=== PATIENT | male | born 1965 | race Caucasian/White ===

== ENCOUNTER 2016-12-24 08:05 | Day surgery (SDC) | payer MEDICARE, MEDICAID ==
[~2016-12-24 08:05] MED LIST: Lactated Ringers 1,000 ML IV SCH; Sodium Chloride 0.9% 10 ML Syringe FLUSH PRN; Sodium Chloride 0.9% 2.5 ML Syringe FLUSH PRN; ceFAZolin 2 GM in Premix Bag 1 BAG IV ONE
--- NOTE | 2016-12-24 08:35 | PCM.PREANE ---
Preanesthetic Assessment - Anesthesia/Transfusion/Family Hx Anesthesia History: Prior Anesthesia Without Reaction Family History of Anesthesia Reaction: No Transfusion History: No Prior Transfusion(s) Intubation History: Unknown - Review of Systems General: No Symptoms Pulmonary: No Symptoms Cardiovascular: No Symptoms Gastrointestinal: No Symptoms Neurological: No Symptoms Other: Reports: None - Physical Assessment Height: 1.65 m Weight: 58.06 kg ASA Class: 3 Mental Status: Alert & Oriented x3 Airway Class: Mallampati = 2 Dentition: Reports: Normal Dentition Thyro-Mental Finger Breadths: 3 Mouth Opening Finger Breadths: 2 ROM/Head Extension: Limited/Partial Lungs: Clear to Auscultation, Normal Respiratory Effort Cardiovascular: Regular Rate, Regular Rhythm, Other (valve click) - Allergies Allergies/Adverse Reactions: Allergies Allergy/AdvReac Type Severity Reaction Status Date / Time No Known Allergies Allergy Verified 04/25/16 13:18 - Blood Blood Available: No - Anesthesia Plan Pre-Op Medication Ordered: None - Acknowledgements Anesthesia Type Planned: General Anesthesia Pt an Appropriate Candidate for the Planned Anesthesia: Yes Alternatives and Risks of Anesthesia Discussed w Pt/Guardian: Yes Pt/Guardian Understands and Agrees with Anesthesia Plan: Yes PreAnesthesia Questionnaire - Past Health History Medical/Surgical History: Denies Medical/Surgical History HEENT History: Reports: None Cardiovascular History: Reports: Heart Valve Replacement (MVR (mechanical valve ) plus tricuspid valve repair at the same timer > 20 years ago), High Cholesterol, Hypertension, Other (See Below) (h/o CHF , cardiac ECHO 03/18 shows EF 52 %) Other Cardiovascular History: hx congenital septal defect Respiratory History: Reports: Sleep Apnea Other Respiratory History: sleep apnea, (septoplasty and adenoidectomy for this) Musculoskeletal History: Reports: Other (See Below) (chronic pain and cyanosis of toes bilateraly) Neurological History: Reports: Other (See Below) Other Neuro History: Down's syndrome, moderate Psychiatric History: Reports: Other (See Below) Other Psychiatric History: down syndrome Endocrine/Metabolic History: Reports: None Dermatologic History: Reports: Other (See Below) Other Dermatologic History: rash to face - Past Surgical History HEENT Surgical History: Reports: Adenoidectomy, Myringotomy w Tube(s), Naso- Sinus Surgery Other HEENT Surgeries/Procedures: septoplasty with laser turbinectomy, Cardiovascular Surgical History: Reports: Other (See Below) Other Cardiovascular Surgeries/Procedures: cardiac surgery 1982 for atrial septal defect, UV plasty mechanical valve -L side, repair mitral valve (MVR ?) - SUBSTANCE USE Smoking Status *Q: Never Smoker Recreational Drug Use History: No - HOME MEDS Home Medications: Home Meds Potassium Chloride 1 tab PO DAILY 04/25/16 [History] Warfarin [Coumadin] 1 tab PO ASDIRECTED 04/25/16 [History] Warfarin [Coumadin] 1 tab PO ASDIRECTED 04/25/16 [History] atorvaSTATin [Lipitor] 1 tab PO BEDTIME 04/25/16 [History] Aspirin [Winston Aspirin] 81 mg PO DAILY 12/22/16 [History] Betamethasone Valerate [IJD: Valisone 0.1% Crm] 1 applic TOP ASDIRECTED [History] Diltiazem [Cardizem CD] 180 mg PO DAILY 12/22/16 [History] traZODone HCl [Trazodone HCl] 50 mg PO BEDTIME 12/22/16 [History] - CURRENT (IN HOUSE) MEDS Current Meds: Current Medications Lactated Ringer's (Ringers, Lactated) 1,000 mls @ 125 mls/hr IV ASDIRECTED CRYSTAL Sodium Chloride (Saline Flush) 10 ml FLUSH ASDIRECTED PRN PRN Reason: Keep Vein Open Sodium Chloride (Saline Flush) 2.5 ml FLUSH ASDIRECTED PRN PRN Reason: Keep Vein Open Discontinued Medications Cefazolin Sodium/Dextrose 2 gm (/ Premix) 50 mls @ 100 mls/hr IV ONETIME ONE Stop: 12/21/16 09:49
[2016-12-24] MEDS ORDERED: Ondansetron 4 MG/2 ML SDV ONE (09:00)
[2016-12-24] MEDS ORDERED: Propofol 200 MG/20 ML SDV ONE (09:01)
[2016-12-24] MEDS ORDERED: Midazolam 1 MG/ML 2 ML SDV ONE (09:01)
[2016-12-24] MEDS ORDERED: fentaNYL 100 MCG/2 ML SDV ONE (09:01)
[2016-12-24] MEDS ORDERED: Bupivacaine 0.5% 10 ML SDV ONE (09:39)
[2016-12-24] MEDS ORDERED: ePHEDrine 50 MG/ML SDV ONE (10:24)
--- NOTE | 2016-12-24 11:09 | PCM.OPNOTE ---
- General Post-Op/Procedure Note Date of Surgery/Procedure: 12/24/16 Operative Procedure(s): excision upper back mass Findings: 5-6 cm back cyst Pre Op Diagnosis: Upper back mass Post-Op Diagnosis: upper back cyst Anesthesia Technique: General LMA Primary Surgeon: Renuka Phillips Condition: Good
[2016-12-24 11:16] VITALS: BP 86/45
--- NOTE | 2016-12-24 11:21 | PCM.POSTAN ---
POST ANESTHESIA ASSESSMENT - MENTAL STATUS Mental Status: Confused (as before surgery) - RESPIRATORY Respiratory Status: Respiratory Rate WNL, Airway Patent, O2 Saturation Stable - CARDIOVASCULAR CV Status: Pulse Rate WNL, Blood Pressure Stable - GASTROINTESTINAL GI Status: No Symptoms - PAIN Pain Score: 0 - POST OP HYDRATION Hydration Status: Adequate & Stable - OBSERVATIONS Free Text/Narrative:: no anesthesia problems
--- NOTE | 2016-12-24 18:29 | OR ---
SURGEON: MANSI OLIVEIRA MD DATE OF PROCEDURE: 12/24/2016 PREOPERATIVE DIAGNOSIS: Upper back mass. POSTOPERATIVE DIAGNOSIS: Upper back mass. PROCEDURE PERFORMED: Excision of upper back mass. ANESTHESIA: General LMA. FLUIDS: See Anesthesia record. ESTIMATED BLOOD LOSS: 10 mL. FINDINGS: 5-6 cm cystic mass excised from the upper back. COMPLICATIONS: None. INDICATIONS: The patient is a 51-year-old male from the [facility], who presents with an enlarging mass on his back. Providers have noted that this is growing in size. A CT of the back showed a possible sebaceous cyst or large lipoma. The decision was made to excise this in the operating room. I discussed the procedure, expected perioperative course, and risks with his caregivers. They verbally agreed and consent was obtained. PROCEDURE IN DETAIL: The patient was brought into the OR and placed on the operating room table in a right lateral decubitus position. A time-out was completed verifying the patient's name, age, date of , allergies, and procedure to be performed. Prior to positioning the patient, general anesthetic was induced and an LMA was placed. The back was prepped and draped in the usual standard fashion. An elliptical incision was made over the apex of the mass using a #15 blade. I anesthetized the area around the mass with 0.5% Marcaine plain. Cautery was used to dissect down to the level of the subcutaneous tissue. I immediately encountered what appeared to be a cyst wall. Using a Metzenbaum scissors in combination with cautery, I dissected around this mass and freed it from the surrounding tissues. It abutted the fascia of the upper back. The cyst was completely excised and sent to Pathology labeled as upper back mass. Cautery was used to obtain hemostasis. Interrupted 3-0 Vicryl were used to tack the skin flaps down to the muscle fascia to prevent seroma formation. A running 3-0 Vicryl stitch was used to bring the subcutaneous skin together. The skin was then closed with a running 4-0 Monocryl suture. Steri-Strips and sterile dressings were applied. The patient tolerated the procedure well and was taken to the PACU in stable condition. BEVERLY NORRIS /[id number] KAYLA
== END 2016-12-24 11:50 | disposition home or self-care (01) ==
LOC: MW.SDS 08:05
PROVIDERS: ATTEND Surgery
DX: L72.0 Epidermal cyst (principal); Q90.9 Down syndrome, unspecified; I11.0 Hypertensive heart disease with heart failure; I50.9 Heart failure, unspecified; G47.30 Sleep apnea, unspecified; E11.9 Type 2 diabetes mellitus without complications; E78.00 Pure hypercholesterolemia, unspecified; Z79.01 Long term (current) use of anticoagulants; Z79.82 Long term (current) use of aspirin; Z79.899 Other long term (current) drug therapy; Z95.2 Presence of prosthetic heart valve; Z90.89 Acquired absence of other organs; Z98.890 Other specified postprocedural states
CPT/HCPCS: 11406; 88304; J2250; J2405; J3010; J7120; 00300; J2704

== ENCOUNTER 2018-06-11 04:52 | Observation (INO) | payer MEDICARE, MEDICAID ==
[2018-06-11] MEDS ORDERED: LORazepam 2 MG/ML SDV IVPUSH ONE ×2 (05:01→05:26)
[2018-06-11] MEDS ORDERED: Sodium Chloride 0.9% 10 ML Syringe FLUSH PRN (05:01)
[2018-06-11] MEDS ORDERED: Sodium Chloride 0.9% 2.5 ML Syringe FLUSH PRN (05:01)
--- NOTE | 2018-06-11 05:06 | EDM.PDOC ---
ED HPI GENERAL MEDICAL PROBLEM - General Stated Complaint: SEIZURE Time Seen by Provider: 06/11/18 04:55 - History of Present Illness INITIAL COMMENTS - FREE TEXT/NARRATIVE: HISTORY AND PHYSICAL: History of present illness: The patient is a 53-year-old male with a history of mitral valve replacement with a mechanical valve and long-term anticoagulation, tricuspid valve repair will compensated CHF Down syndrome and a severe intellectual disability and lives at one of our local group homes and presents via EMS after having an episode of abnormal motor behavior/seizure activity. According to a sketchy history that was given to the paramedics by the surgical services tech the patient was in a chair and had no preceding systemic complaints when this abnormal motor activity was witnessed. He did not have loss of bowel or bladder and on EMS arrival they did not witness any seizure activity but he seemed to be post ictal and somewhat posturing which by the time he arrived here had improved and he is more at his baseline. The patient has a history of hypercholesterolemia as well as the surgical valve repair and is not able to offer any history here as he is nonverbal. None of the caretakers from the detention have come with the patient to give us more information. We will attempt to contact them or await their arrival for more information. The patient did not sustain any trauma with these events according to EMS and was in the chair when they arrived and they were told he had been in the chair when this occurred. We do not know about any preceding symptoms or events. According to the computer research I've done he has no history of seizures or other episodes like this. Please see below for additional information from the [facility] retention representative Review of systems: As per history of present illness and below otherwise all systems reviewed and negative. Past medical history: As per history of present illness and as reviewed below otherwise noncontributory. Surgical history: As per history of present illness and as reviewed below otherwise noncontributory. Social history: No reported history of drug or alcohol abuse. Family history: As per history of present illness and as reviewed below otherwise noncontributory. Physical exam: General: Well-developed well-nourished thin man who is nontoxic and moving all extremities and is nonverbal. He is sitting in the bed with his tongue slightly protuberant and will allow us to do basic things to him but tries to remove the pulse ox and picks at things and rearranges the blanket numerous times. On his clothing there is no evidence of any bowel or bladder disturbances and his tongue has no lacerations or contusions. HEENT: Atraumatic, normocephalic, pupils reactive, negative for conjunctival pallor or scleral icterus, mucous membranes dry, throat clear, neck supple, nontender, trachea midline. Lungs: Clear to auscultation diminished breath sounds throughout with poor effort but no wheezing stridor or worker breathing is seen, there is a midline chest wall scar which is well-healed consistent with his valvular replacement, breath sounds equal bilaterally, chest nontender. Heart: S1S2, regular, negative for clicks, rubs, or JVD. There is a systolic click consistent with a mechanical valve that is appreciated but is somewhat distant on my evaluation. Abdomen: Soft, nondistended, nontender. Negative for masses or hepatosplenomegaly. Negative for costovertebral tenderness. Pelvis: Stable nontender. Genitourinary: Deferred. Rectal: Deferred. Extremities: Atraumatic with full range of motion without defects deficits or soft tissue changes, negative for cords or calf pain. Neurovascular unremarkable. Neuro: Awake, nonverbal and responsive to pain and voice but does not follow commands and picks at different items in the bed and the blanket. There is no one from home here currently to identify his baseline mental status. Motor and sensory unremarkable throughout. Exam nonfocal. Diagnostics: EKG CBC CMP INR TSH troponin prolactin UA with reflex CT of the head chest x-ray Therapeutics: IV O2 monitor gentle IV fluids, Ativan to permit testing to be performed A member from the detention has arrived, and knows Dimitry very well. He does reiterate the history that I ordered he have dictated above and that he has no history of seizures. This retention representative was not present or tonight's events but does tell me that Dimitry has been progressively exhibiting signs of dementia over the last several months with more restlessness less sleeping, more sundowning becoming progressively more nonverbal and exhibiting primitive behaviors like crawling instead of walking to room. He says that this is better very progressive thing and is not sudden in onset. He was not present for tonight's events and is unsure of what was witnessed but we did discuss that evening and these motor abnormalities may have been a seizure or it may have been a syncopal event or the patient may have been in sleep when this occurred it is all unclear at this point. We will proceed to do a workup including CT scan of the head as the patient is on Coumadin therapy. We will obtain these testing results and reevaluate for disposition plan. The detention retention representative is aware that we will likely need to give the patient some Ativan in order to get testing done and he is agreeable. He is also trying to comments to the patient during our evaluation 0620: I discussed all testing results with caregiver at bedside and he will notify the power of consumer attorney for medical treatment, the patient's guardian, about tonight's events. I discussed options for disposition with either follow- up in the neurology clinic or admission to the hospital. The caregiver feels uncomfortable in light of tonight's events and potential of more seizure activity without evaluation as the patient has other behavioral issues ongoing. I discussed this case with Dr. Pink who is agreed for observation admission and would like a consult to Dr. Kirkland. At this point we discussed whether or not the patient should be.started on anticonvulsant therapy as getting an outpatient EEG and/or any further history from this patient and of tonight's events is unlikely. Dr. Pink can have a dialogue with her as she is not available until 8 AM and he is aware of that. I put in a formal consult to her but she will need to be notified by the floor or Dr. Pink at 8 am of this patient. Caregiver is comfortable with this. The patient needed a total of 2 doses of 0.5 mg of Ativan to get our testing performed and he is currently sleeping comfortably in the ED. He is responding to IV fluids and his stable for transfer to the floor. Impression: episode of abnormal motor behavior seizure versus syncopal event , history of Down's syndrome and severe mental disability with signs of progressing dementia per history Definitive disposition and diagnosis as appropriate pending reevaluation and review of above. - Related Data Allergies Allergy/AdvReac Type Severity Reaction Status Date / Time No Known Allergies Allergy Verified 06/11/18 05:11 Home Meds: Home Meds Potassium Chloride 1 tab PO DAILY 04/25/16 [History] Warfarin [Coumadin] 1 tab PO ASDIRECTED 04/25/16 [History] Warfarin [Coumadin] 1 tab PO ASDIRECTED 04/25/16 [History] atorvaSTATin [Lipitor] 1 tab PO BEDTIME 04/25/16 [History] Aspirin [Carroll Aspirin EC] 81 mg PO DAILY 12/22/16 [History] Betamethasone Valerate [IJD: Valisone 0.1% Crm] 1 applic TOP ASDIRECTED [History] Diltiazem [Cardizem CD] 180 mg PO DAILY 12/22/16 [History] traZODone HCl [Trazodone HCl] 50 mg PO BEDTIME 12/22/16 [History] Past Medical History - Past Health History Medical/Surgical History: Denies Medical/Surgical History HEENT History: Reports: None Other HEENT History: Myopia Cardiovascular History: Reports: Heart Valve Replacement (MVR (mechanical valve ) plus tricuspid valve repair at the same timer > 20 years ago), High Cholesterol, Hypertension, Other (See Below) (h/o CHF , cardiac ECHO 03/18 shows EF 52 %) Other Cardiovascular History: hx congenital septal defect Respiratory History: Reports: Sleep Apnea Other Respiratory History: sleep apnea, (septoplasty and adenoidectomy for this) Musculoskeletal History: Reports: Other (See Below) (chronic pain and cyanosis of toes bilateraly) Neurological History: Reports: Seizure Other Neuro History: Down's syndrome, moderate Psychiatric History: Reports: Other (See Below) Other Psychiatric History: down syndrome Endocrine/Metabolic History: Reports: Diabetes, Type II Dermatologic History: Reports: Other (See Below) Other Dermatologic History: rash to face - Past Surgical History HEENT Surgical History: Reports: Adenoidectomy Social & Family History - Family History Family Medical History: Noncontributory - Caffeine Use Caffeine Use: Reports: None Caffeine Use Comment: 1cup/day ED ROS GENERAL - Review of Systems Review Of Systems: ROS reveals no pertinent complaints other than HPI. ED EXAM, GENERAL - Physical Exam Exam: See Below (See dictation) Course - Vital Signs Last Recorded V/S: Last Vital Signs Temp 36.2 C 06/11/18 04:52 Pulse 70 06/11/18 06:03 Resp 18 06/11/18 06:03 BP 79/44 L 06/11/18 06:03 Pulse Ox 87 L 06/11/18 06:03 - Orders/Labs/Meds Orders: Active Orders 24 hr Category Date Time Status Patient Status [ADT] Stat ADT 06/11/18 06:20 Ordered Cardiac Monitoring [RC] . DIRECTED Care 06/11/18 05:00 Active EKG Documentation Completion [RC] STAT Care 06/11/18 05:00 Active Notify Provider Consults [RC] ASDIRECTED Care 06/11/18 06:22 Ordered Oxygen Therapy, ED [RC] ASDIRECTED Care 06/11/18 05:00 Active Pulse Oximetry [RC] ASDIRECTED Care 06/11/18 05:00 Active Consult to Physician [CONS] Stat Cons 06/11/18 06:22 Ordered UA RFX RAFFI AND CULT IF INDIC [URIN] Stat Lab 06/11/18 05:00 Ordered Sodium Chloride 0.9% [Normal Saline] 500 ml Med 06/11/18 06:00 Active IV .BOLUS Sodium Chloride 0.9% [Normal Saline] 500 ml Med 06/11/18 05:15 Active IV STAT Sodium Chloride 0.9% [Saline Flush] Med 06/11/18 05:01 Active 10 ml FLUSH ASDIRECTED PRN Sodium Chloride 0.9% [Saline Flush] Med 06/11/18 05:01 Active 2.5 ml FLUSH ASDIRECTED PRN Saline Lock Insert [OM.PC] Stat Oth 06/11/18 05:00 Ordered Medication Orders Sodium Chloride (Normal Saline) 500 mls @ 999 mls/hr IV STAT CRYSTAL Last Admin: 06/11/18 05:17 Dose: 999 mls/hr Sodium Chloride (Normal Saline) 500 mls @ 999 mls/hr IV .BOLUS CRYSTAL Last Admin: 06/11/18 05:51 Dose: 999 mls/hr Sodium Chloride (Saline Flush) 10 ml FLUSH ASDIRECTED PRN PRN Reason: Keep Vein Open Sodium Chloride (Saline Flush) 2.5 ml FLUSH ASDIRECTED PRN PRN Reason: Keep Vein Open Labs: Laboratory Tests 06/11/18 06/11/18 06/11/18 Range/Units 04:57 04:57 04:57 WBC 5.06 (4.0-11.0) K/uL RBC 4.36 L (4.50-5.90) M/uL Hgb 14.2 (13.0-17.0) g/dL Hct 42.9 (38.0-50.0) % MCV 98.4 H (80.0-98.0) fL MCH 32.6 H (27.0-32.0) pg MCHC 33.1 (31.0-37.0) g/dL RDW Std Deviation 53.9 (28.0-62.0) fl RDW Coeff of Allen 15 (11.0-15.0) % Plt Count 209 (150-400) K/uL MPV 10.00 (7.40-12.00) fL Neut % (Auto) 32.6 L (48.0-80.0) % Lymph % (Auto) 57.9 H (16.0-40.0) % [place]ford % (Auto) 8.3 (0.0-15.0) % Eos % (Auto) 0.4 (0.0-7.0) % Baso % (Auto) 0.8 (0.0-1.5) % Neut # (Auto) 1.7 (1.4-5.7) K/uL Lymph # (Auto) 2.9 H (0.6-2.4) K/uL Radford # (Auto) 0.4 (0.0-0.8) K/uL Eos # (Auto) 0.0 (0.0-0.7) K/uL Baso # (Auto) 0.0 (0.0-0.1) K/uL Nucleated RBC % 0.0 /100WBC Nucleated RBCs # 0 K/uL INR 2.15 Sodium 144 (136-148) mmol/L Potassium 4.0 (3.5-5.1) mmol/L Chloride 107 (98-107) mmol/L Carbon Dioxide 25.4 (21.0-32.0) mmol/L BUN 18 (7.0-18.0) mg/dL Creatinine 1.0 (0.8-1.3) mg/dL Est Cr Clr Drug Dosing TNP Estimated GFR (MDRD) > 60.0 ml/min Glucose 116 H (74-106) mg/dL Calcium 8.7 (8.5-10.1) mg/dL Total Bilirubin 0.5 (0.2-1.0) mg/dL AST 28 (15-37) IU/L ALT 27 (14-63) IU/L Alkaline Phosphatase 81 (46-116) U/L Troponin I < 0.050 (0.000-0.056) ng/mL Total Protein 7.4 (6.4-8.2) g/dL Albumin 3.6 (3.4-5.0) g/dL Globulin 3.8 (2.6-4.0) g/dL Albumin/Globulin Ratio 0.9 (0.9-1.6) TSH 3rd Generation 5.16 H (0.36-3.74) uIU/mL Prolactin 121.6 ng/mL Meds: Medications Generic Name Dose Route Start Last Admin Trade Name Freq PRN Reason Stop Dose Admin Sodium Chloride 500 mls @ 999 mls/hr 06/11/18 05:15 06/11/18 05:17 Normal Saline IV 999 mls/hr STAT CRYSTAL Administration Sodium Chloride 500 mls @ 999 mls/hr 06/11/18 06:00 06/11/18 05:51 Normal Saline IV 999 mls/hr .BOLUS CRYSTAL Administration Sodium Chloride 10 ml 06/11/18 05:01 Saline Flush FLUSH ASDIRECTED PRN Keep Vein Open Sodium Chloride 2.5 ml 06/11/18 05:01 Saline Flush FLUSH ASDIRECTED PRN Keep Vein Open Discontinued Medications Generic Name Dose Route Start Last Admin Trade Name Freq PRN Reason Stop Dose Admin Lorazepam 0.5 mg 06/11/18 05:01 06/11/18 05:16 Ativan IVPUSH 06/11/18 05:02 0.5 mg ONETIME ONE Administration Lorazepam 0.5 mg 06/11/18 05:26 06/11/18 05:26 Ativan IVPUSH 06/11/18 05:27 0.5 mg ONETIME ONE Administration Departure - Departure Time of Disposition: 06:26 Disposition: Refer to Observation Condition: Good Clinical Impression: Episode of abnormal behavior - Discharge Information - My Orders Last 24 Hours: My Active Orders 06/11/18 05:00 Cardiac Monitoring [RC] . DIRECTED EKG Documentation Completion [RC] STAT Oxygen Therapy, ED [RC] ASDIRECTED Pulse Oximetry [RC] ASDIRECTED UA RFX RAFFI AND CULT IF INDIC [URIN] Stat Saline Lock Insert [OM.PC] Stat 06/11/18 05:01 Sodium Chloride 0.9% [Saline Flush] 10 ml FLUSH ASDIRECTED PRN Sodium Chloride 0.9% [Saline Flush] 2.5 ml FLUSH ASDIRECTED PRN 06/11/18 05:15 Sodium Chloride 0.9% [Normal Saline] 500 ml IV STAT 06/11/18 06:00 Sodium Chloride 0.9% [Normal Saline] 500 ml IV .BOLUS 06/11/18 06:20 Patient Status [ADT] Stat 06/11/18 06:22 Notify Provider Consults [RC] ASDIRECTED Consult to Physician [CONS] Stat - Assessment/Plan Last 24 Hours: My Active Orders 06/11/18 05:00 Cardiac Monitoring [RC] . DIRECTED EKG Documentation Completion [RC] STAT Oxygen Therapy, ED [RC] ASDIRECTED Pulse Oximetry [RC] ASDIRECTED UA RFX RAFFI AND CULT IF INDIC [URIN] Stat Saline Lock Insert [OM.PC] Stat 06/11/18 05:01 Sodium Chloride 0.9% [Saline Flush] 10 ml FLUSH ASDIRECTED PRN Sodium Chloride 0.9% [Saline Flush] 2.5 ml FLUSH ASDIRECTED PRN 06/11/18 05:15 Sodium Chloride 0.9% [Normal Saline] 500 ml IV STAT 06/11/18 06:00 Sodium Chloride 0.9% [Normal Saline] 500 ml IV .BOLUS 06/11/18 06:20 Patient Status [ADT] Stat 06/11/18 06:22 Notify Provider Consults [RC] ASDIRECTED Consult to Physician [CONS] Stat
[2018-06-11] MEDS ORDERED: Sodium Chloride 0.9% 500 ML IV SCH ×2 (05:15→06:00)
--- NOTE | 2018-06-11 05:58 | CR ---
Indication: Dyspnea Technique: Chest 1 view Comparison: 04/25/2016. Findings/Impression: Cardiovascular and mediastinum: Grossly stable cardiomediastinal silhouette. Sternotomy sutures and valvular prosthesis again seen Lungs and pleural space: The medial apices are obscured by the patient`s chin. Mild ill-defined right basilar opacity could represent atelectasis or evolving infiltrate. Correlate clinically and followup. No gross pleural effusions seen. Bones and soft tissues: No significant change. Dictated by Ben Mosquera MD @ 06/11/2018 5:57:14 AM Dictated by: Ben Mosquera MD @ 06/11/2018 05:57:19 (Electronically Signed)
[2018-06-11 06:02] LABS: CHLORIDE,CL 107 mmol/L (98-107); SODIUM,NA 144 mmol/L (136-148)
--- NOTE | 2018-06-11 06:07 | CT ---
INDICATION: Seizure TECHNIQUE: CT head without contrast. COMPARISON: 02/10/2017 FINDINGS: There is pronounced cortical atrophy for the patient`s age. There is proportionate ventriculomegaly. There is no significant mass effect or midline shift. There is no loss of plasencia-white differentiation. There is an area of subcortical encephalomalacia in the left frontal lobe on images 35 -40, not seen on the prior, compatible with a chronic infarct. There is no evidence of an acute intracranial hemorrhage. No acute calvarial fracture is seen. The visualized paranasal sinuses and mastoid air cells are clear. The visualized orbits are within normal limits. IMPRESSION: No evidence of an acute intracranial hemorrhage, mass effect or loss of plasencia-white differentiation. Pronounced atrophy for age. 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 Dictated by Ben Mosquera MD @ 06/11/2018 6:05:11 AM Please note that all CT scans at this facility use dose modulation, iterative reconstruction, and/or weight-based dosing when appropriate to reduce radiation dose to as low as reasonably achievable. Dictated by: Ben Mosquera MD @ 06/11/2018 06:05:18 (Electronically Signed)
--- NOTE | 2018-06-11 06:54 | PCM.HP ---
H&P History of Present Illness - General Date of Service: 06/11/18 Admit Problem/Dx: Admission Diagnosis/Problem Admission Diagnosis/Problem Abnormal motor activity Source of Information: Old Records, Other (Caregiver) History Limitations: Reports: Altered Mental Status - History of Present Illness Initial Comments - Free Text/Narative: The patient is a 53-year-old gentleman who is currently living in a prison and has been previously independently functioning and he has presented to the emergency department after a witnessed seizure-like activity. The patient has a history of Down syndrome and has had subsequent mitral valve replacement and a history of CHF. This is been well compensated. The patient had to be sedated in order to have CAT scan. The patient's caregiver is with him but at this time he is not able to participate in any meaningful way with his history and physical and most information has been taken from his caregiver and ethical records. Onset of Symptoms: Reports: Sudden Duration of Symptoms: Reports: Hour(s):, Resolved Prior to Arrival Location: Reports: Generalized Improves with: Reports: None Worsens with: Reports: None Associated Symptoms: Reports: Confusion - Related Data Allergies/Adverse Reactions: Allergies Allergy/AdvReac Type Severity Reaction Status Date / Time No Known Allergies Allergy Verified 06/11/18 05:11 Home Medications: Home Meds Potassium Chloride 10 meq PO DAILY 04/25/16 [History] Warfarin [Coumadin] 3 mg PO ASDIRECTED 04/25/16 [History] Warfarin [Coumadin] 4.5 mg PO ASDIRECTED 04/25/16 [History] atorvaSTATin [Lipitor] 20 mg PO BEDTIME 04/25/16 [History] Aspirin [[address] Aspirin EC] 81 mg PO DAILY 12/22/16 [History] Betamethasone Valerate [IJD: Valisone 0.1% Crm] 1 applic TOP ASDIRECTED [History] Diltiazem [Cardizem CD] 180 mg PO DAILY 12/22/16 [History] traZODone HCl [Trazodone HCl] 50 mg PO BEDTIME 12/22/16 [History] Cyanocobalamin (Vitamin B12) [Vitamin B12] 1,000 mcg PO DAILY 06/11/18 [History] Dimethicone/Oatmeal, Colloidal [Aveeno Daily Moist Lotion] 1 applic TOP ASDIRECTED 06/11/18 [History] Ketoconazole [Nizoral 2% Shampoo] 1 applic TOP ASDIRECTED 06/11/18 [History] Sertraline [Zoloft] 50 mg PO DAILY 06/11/18 [History] metroNIDAZOLE [Metronidazole] 1 applic TOP BID 06/11/18 [History] Past Medical History - Past Health History Medical/Surgical History: Denies Medical/Surgical History HEENT History: Reports: None Other HEENT History: Myopia Cardiovascular History: Reports: Heart Valve Replacement (MVR (mechanical valve ) plus tricuspid valve repair at the same timer > 20 years ago), High Cholesterol, Hypertension, Other (See Below) (h/o CHF , cardiac ECHO 03/18 shows EF 52 %) Other Cardiovascular History: hx congenital septal defect Respiratory History: Reports: Sleep Apnea Other Respiratory History: sleep apnea, (septoplasty and adenoidectomy for this) Musculoskeletal History: Reports: Other (See Below) (chronic pain and cyanosis of toes bilateraly) Neurological History: Reports: Seizure Other Neuro History: Down's syndrome, moderate Psychiatric History: Reports: Other (See Below) Other Psychiatric History: down syndrome Endocrine/Metabolic History: Reports: Diabetes, Type II Hematologic History: Reports: None Dermatologic History: Reports: Other (See Below) Other Dermatologic History: rash to face - Past Surgical History HEENT Surgical History: Reports: Adenoidectomy Social & Family History - Family History Family Medical History: Noncontributory - Tobacco Use Smoking Status *Q: Unknown Ever Smoked - Caffeine Use Caffeine Use: Reports: None Caffeine Use Comment: 1cup/day - Recreational Drug Use Recreational Drug Use: No - Living Situation & Occupation Living situation: Reports: Single, Other (long-term) Occupation: Disabled H&P Review of Systems - Review of Systems: Review Of Systems: Unable To Obtain Exam - Exam Exam: See Below - Vital Signs Vital Signs: Last Vital Signs Temp 36.2 C 06/11/18 04:52 Pulse 75 06/11/18 06:43 Resp 19 06/11/18 06:43 BP 88/47 L 06/11/18 06:43 Pulse Ox 97 06/11/18 06:43 Weight: 59.3 kg - Exam Quality Assessment: No: Supplemental Oxygen General: Sedated HEENT: Conjunctiva Clear, EACs Clear, EOMI. No: Mucosa Moist & [place] (Dry) Neck: Supple, Trachea Midline Lungs: Normal Respiratory Effort, Rales, Other (Snoring) Cardiovascular: Regular Rate, Regular Rhythm GI/Abdominal Exam: Normal Bowel Sounds, Soft (No reaction), No Distention (Male) Exam: Deferred Rectal (Males) Exam: Deferred Back Exam: No: Normal Inspection (Down syndrome) Extremities: No Pedal Edema Skin: Warm, Dry Psychiatric: No: Alert - Patient Data Lab Results Last 24 hrs: Laboratory Results - last 24 hr 06/11/18 06/11/18 06/11/18 Range/Units 04:57 04:57 04:57 WBC 5.06 (4.0-11.0) K/uL RBC 4.36 L (4.50-5.90) M/uL Hgb 14.2 (13.0-17.0) g/dL Hct 42.9 (38.0-50.0) % MCV 98.4 H (80.0-98.0) fL MCH 32.6 H (27.0-32.0) pg MCHC 33.1 (31.0-37.0) g/dL RDW Std Deviation 53.9 (28.0-62.0) fl RDW Coeff of Allen 15 (11.0-15.0) % Plt Count 209 (150-400) K/uL MPV 10.00 (7.40-12.00) fL Neut % (Auto) 32.6 L (48.0-80.0) % Lymph % (Auto) 57.9 H (16.0-40.0) % [place] % (Auto) 8.3 (0.0-15.0) % Eos % (Auto) 0.4 (0.0-7.0) % Baso % (Auto) 0.8 (0.0-1.5) % Neut # (Auto) 1.7 (1.4-5.7) K/uL Lymph # (Auto) 2.9 H (0.6-2.4) K/uL [place] # (Auto) 0.4 (0.0-0.8) K/uL Eos # (Auto) 0.0 (0.0-0.7) K/uL Baso # (Auto) 0.0 (0.0-0.1) K/uL Nucleated RBC % 0.0 /100WBC Nucleated RBCs # 0 K/uL INR 2.15 Sodium 144 (136-148) mmol/L Potassium 4.0 (3.5-5.1) mmol/L Chloride 107 (98-107) mmol/L Carbon Dioxide 25.4 (21.0-32.0) mmol/L BUN 18 (7.0-18.0) mg/dL Creatinine 1.0 (0.8-1.3) mg/dL Est Cr Clr Drug Dosing TNP Estimated GFR (MDRD) > 60.0 ml/min Glucose 116 H (74-106) mg/dL Calcium 8.7 (8.5-10.1) mg/dL Total Bilirubin 0.5 (0.2-1.0) mg/dL AST 28 (15-37) IU/L ALT 27 (14-63) IU/L Alkaline Phosphatase 81 (46-116) U/L Troponin I < 0.050 (0.000-0.056) ng/mL Total Protein 7.4 (6.4-8.2) g/dL Albumin 3.6 (3.4-5.0) g/dL Globulin 3.8 (2.6-4.0) g/dL Albumin/Globulin Ratio 0.9 (0.9-1.6) TSH 3rd Generation 5.16 H (0.36-3.74) uIU/mL Prolactin 121.6 ng/mL Result Diagrams: 06/11/18 04:57 06/11/18 04:57 - Problem List (1) Seizure SNOMED Code(s): 55884431 ICD Code: R56.9 - UNSPECIFIED CONVULSIONS Status: Acute Priority: High Current Visit: Yes (2) Dementia SNOMED Code(s): 86501528 ICD Code: F03.90 - UNSPECIFIED DEMENTIA WITHOUT BEHAVIORAL DISTURBANCE Status: Chronic Priority: Medium Current Visit: Yes Qualifiers: Dementia type: Alzheimer's disease Alzheimer's disease onset: other onset Dementia behavioral disturbance: without behavioral disturbance Qualified Code(s): G30.8 - Other Alzheimer's disease; F02.80 - Dementia in other diseases classified elsewhere without behavioral disturbance (3) Developmental disability Status: Chronic Priority: Medium Current Visit: Yes (4) Mitral valve replaced SNOMED Code(s): 9558080428739, 8644115644260 ICD Code: Z95.2 - PRESENCE OF PROSTHETIC HEART VALVE Status: Chronic Priority: Medium Current Visit: Yes (5) Chronic anticoagulation SNOMED Code(s): 116946403 ICD Code: Z79.01 - SALESPERSON STEREO EQUIPMENT (CURRENT) USE OF ANTICOAGULANTS Status: Chronic Priority: Medium Current Visit: Yes (6) Down's syndrome SNOMED Code(s): 05244385 ICD Code: Q90.9 - DOWN SYNDROME, UNSPECIFIED Status: Chronic Priority: Medium Current Visit: Yes (7) CVA, old, dysarthria SNOMED Code(s): 051980833 ICD Code: I69.322 - DYSARTHRIA FOLLOWING CEREBRAL INFARCTION Status: Chronic Priority: Medium Current Visit: Yes Problem List Initiated/Reviewed/Updated: Yes Orders Last 24hrs: Active Orders 24 hr Category Date Time Status Patient Status [ADT] Stat ADT 06/11/18 06:20 Active Cardiac Monitoring [RC] . DIRECTED Care 06/11/18 05:00 Active Notify Provider Consults [RC] ASDIRECTED Care 06/11/18 06:22 Active Consult to Physician [CONS] Stat Cons 06/11/18 06:22 Active UA RFX RAFFI AND CULT IF INDIC [URIN] Stat Lab 06/11/18 05:00 Ordered Sodium Chloride 0.9% [Normal Saline] 1,000 ml Med 06/11/18 07:00 Active IV ASDIRECTED Sodium Chloride 0.9% [Normal Saline] 500 ml Med 06/11/18 06:00 Active IV .BOLUS Sodium Chloride 0.9% [Normal Saline] 500 ml Med 06/11/18 05:15 Active IV STAT Sodium Chloride 0.9% [Saline Flush] Med 06/11/18 05:01 Active 10 ml FLUSH ASDIRECTED PRN Sodium Chloride 0.9% [Saline Flush] Med 06/11/18 05:01 Active 2.5 ml FLUSH ASDIRECTED PRN Saline Lock Insert [OM.PC] Stat Oth 06/11/18 05:00 Ordered Medication Orders Sodium Chloride (Normal Saline) 500 mls @ 999 mls/hr IV STAT CRYSTAL Last Admin: 06/11/18 05:17 Dose: 999 mls/hr Sodium Chloride (Normal Saline) 500 mls @ 999 mls/hr IV .BOLUS CRYSTAL Last Admin: 06/11/18 05:51 Dose: 999 mls/hr Sodium Chloride (Normal Saline) 1,000 mls @ 100 mls/hr IV ASDIRECTED CRYSTAL Sodium Chloride (Saline Flush) 10 ml FLUSH ASDIRECTED PRN PRN Reason: Keep Vein Open Sodium Chloride (Saline Flush) 2.5 ml FLUSH ASDIRECTED PRN PRN Reason: Keep Vein Open Assessment/Plan Comment:: The patient is a 53-year-old gentleman who has Down syndrome. 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 Patient has had a decline in his overall functioning status as well. CT scan obtained through the emergency department did show severe cerebral atrophy and an old infarct. Neurology has been consulted for the new onset seizures. I had a discussion with the neurologist that had indicated that the old CVA was likely foci of the patient' s seizure activities. Neurology has recommended that the patient be started on Keppra 500 mg by mouth twice a day. The patient once he is awake and out of sedation may require one-to-one setter. The patient after discussion with the family members has been made a DO NOT INTUBATE/DO NOT RESUSCITATE category. Repeat laboratory studies have been ordered. The patient will likely be appropriate for discharge in 1-2 days.
[2018-06-11] MEDS: Sodium Chloride 0.9% 1,000 ML IV SCH ×2 (07:20→17:27)
[2018-06-11] MEDS ORDERED: Sodium Chloride 0.9% 1,000 ML IV SCH (07:30)
[2018-06-11] MEDS ORDERED: KETOCONAZOLE TOP SCH (10:30)
[2018-06-11] MEDS ORDERED: [UNRECOGNIZED DRUG - OTHER] TOP SCH (10:30)
[2018-06-11] MEDS ORDERED: Non-Formulary Medication 1 Each (Warfarin 3 MG) PO SCH (10:30)
[2018-06-11] MEDS ORDERED: DIMETHICONE TOP SCH (10:30)
[2018-06-11] MEDS ORDERED: Betamethasone Valerate 0.1% Crm 15 GM Tube TOP SCH (11:15)
[2018-06-11] MEDS: levETIRAcetam 500 MG Tab PO SCH ×2 (11:28→20:03)
[2018-06-11] MEDS ORDERED: Warfarin 2.5 MG Tab PO ONE (14:00)
[2018-06-11] MEDS ORDERED: Warfarin 2 MG Tab PO ONE (14:00)
[2018-06-11] MEDS: Warfarin 2 MG Tab PO ONE ×2 (14:31→15:13)
[2018-06-11] MEDS: Warfarin 2.5 MG Tab PO ONE ×2 (14:31→15:12)
--- NOTE | 2018-06-11 14:31 | PCM.CONS ---
H&P History of Present Illness - General Date of Service: 06/11/18 Admit Problem/Dx: Admission Diagnosis/Problem Admission Diagnosis/Problem Abnormal motor activity 53 year old man with a history of Down syndrome, mechanical mitral valve on warfarin, admitted with seizure activity. He has had decline in cognition and balance recently as well. History obtained from chart and his caregiver who did not directly witness event but knows him well and chart. At baseline he had intellectual impairment. He spoke in 3-4 word sentences. No problems were noted with walking. He lived in [facility] with some assistance. In 2017, cognitive decline was noted. 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 There were no behavior concerns. He was started on antidepressant for concern of depression as cause of decline, which did not seem to have impact on cognition. He moved to correction program. He has been unsteady with walking in the last 8 weeks. For the last week, his sleep has been irregular. Overnight, he was sitting in a chair when he was noted to have tonic clonic activity. He was brought to the ED. About 4 am, he was alert. He received Ativan , so he would tolerate testing. CT head showed atrophy and hypodensity in left frontal lobe, subcortical. - Related Data Allergies/Adverse Reactions: Allergies Allergy/AdvReac Type Severity Reaction Status Date / Time No Known Allergies Allergy Verified 06/11/18 05:11 Home Medications: Home Meds Potassium Chloride 10 meq PO DAILY 04/25/16 [History] Warfarin [Coumadin] 3 mg PO ASDIRECTED 04/25/16 [History] Warfarin [Coumadin] 4.5 mg PO ASDIRECTED 04/25/16 [History] atorvaSTATin [Lipitor] 20 mg PO BEDTIME 04/25/16 [History] Aspirin [[place] Aspirin EC] 81 mg PO DAILY 12/22/16 [History] Betamethasone Valerate [IJD: Valisone 0.1% Crm] 1 applic TOP ASDIRECTED [History] Diltiazem [Cardizem CD] 180 mg PO DAILY 12/22/16 [History] traZODone HCl [Trazodone HCl] 50 mg PO BEDTIME 12/22/16 [History] Cyanocobalamin (Vitamin B12) [Vitamin B12] 1,000 mcg PO DAILY 06/11/18 [History] Dimethicone/Oatmeal, Colloidal [Aveeno Daily Moist Lotion] 1 applic TOP ASDIRECTED 06/11/18 [History] Ketoconazole [Nizoral 2% Shampoo] 1 applic TOP ASDIRECTED 06/11/18 [History] Sertraline [Zoloft] 50 mg PO DAILY 06/11/18 [History] metroNIDAZOLE [Metronidazole] 1 applic TOP BID 06/11/18 [History] levETIRAcetam [Keppra] 500 mg PO BID #60 tablet 06/12/18 [Rx] Past Medical History - Past Health History Medical/Surgical History: Denies Medical/Surgical History HEENT History: Reports: None Other HEENT History: Myopia Cardiovascular History: Reports: Heart Valve Replacement, High Cholesterol, Hypertension, Other (See Below) Other Cardiovascular History: hx congenital septal defect Respiratory History: Reports: Sleep Apnea Other Respiratory History: sleep apnea, (septoplasty and adenoidectomy for this) Musculoskeletal History: Reports: Other (See Below) Neurological History: Reports: Seizure Other Neuro History: Down's syndrome, moderate Psychiatric History: Reports: Other (See Below) Other Psychiatric History: down syndrome Endocrine/Metabolic History: Reports: Diabetes, Type II Dermatologic History: Reports: Other (See Below) Other Dermatologic History: rash to face - Past Surgical History HEENT Surgical History: Reports: Adenoidectomy Social & Family History - Family History Family Medical History: Noncontributory - Tobacco Use Smoking Status *Q: Never Smoker Second Hand Smoke Exposure: No - Caffeine Use Caffeine Use: Reports: Coffee, Soda Caffeine Use Comment: 1cup/day - Recreational Drug Use Recreational Drug Use: No H&P Review of Systems - Review of Systems: Review Of Systems: Unable To Obtain (due to mental status) Exam - Exam Exam: See Below - Vital Signs Vital Signs: Last Vital Signs Temp 36.4 C 06/11/18 08:00 Pulse 62 06/11/18 08:00 Resp 18 06/11/18 08:00 BP 103/50 L 06/11/18 08:00 Pulse Ox 98 06/11/18 08:00 Weight: 55 kg - Exam Physical Exam Comments:: Examination: Limited by recent Ativan Mental Status: He was sleeping at onset of examination. He withdraws to tactile stimuli. CN: pupils reactive Motor: Moves all limbs - Patient Data Lab Results Last 24 hrs: Laboratory Results - last 24 hr 06/11/18 06/11/18 06/11/18 Range/Units 04:57 04:57 04:57 WBC 5.06 (4.0-11.0) K/uL RBC 4.36 L (4.50-5.90) M/uL Hgb 14.2 (13.0-17.0) g/dL Hct 42.9 (38.0-50.0) % MCV 98.4 H (80.0-98.0) fL MCH 32.6 H (27.0-32.0) pg MCHC 33.1 (31.0-37.0) g/dL RDW Std Deviation 53.9 (28.0-62.0) fl RDW Coeff of Allen 15 (11.0-15.0) % Plt Count 209 (150-400) K/uL MPV 10.00 (7.40-12.00) fL Neut % (Auto) 32.6 L (48.0-80.0) % Lymph % (Auto) 57.9 H (16.0-40.0) % [place] % (Auto) 8.3 (0.0-15.0) % Eos % (Auto) 0.4 (0.0-7.0) % Baso % (Auto) 0.8 (0.0-1.5) % Neut # (Auto) 1.7 (1.4-5.7) K/uL Lymph # (Auto) 2.9 H (0.6-2.4) K/uL [place] # (Auto) 0.4 (0.0-0.8) K/uL Eos # (Auto) 0.0 (0.0-0.7) K/uL Baso # (Auto) 0.0 (0.0-0.1) K/uL Nucleated RBC % 0.0 /100WBC Nucleated RBCs # 0 K/uL INR 2.15 Sodium 144 (136-148) mmol/L Potassium 4.0 (3.5-5.1) mmol/L Chloride 107 (98-107) mmol/L Carbon Dioxide 25.4 (21.0-32.0) mmol/L BUN 18 (7.0-18.0) mg/dL Creatinine 1.0 (0.8-1.3) mg/dL Est Cr Clr Drug Dosing TNP Estimated GFR (MDRD) > 60.0 ml/min Glucose 116 H (74-106) mg/dL Calcium 8.7 (8.5-10.1) mg/dL Total Bilirubin 0.5 (0.2-1.0) mg/dL AST 28 (15-37) IU/L ALT 27 (14-63) IU/L Alkaline Phosphatase 81 (46-116) U/L Troponin I < 0.050 (0.000-0.056) ng/mL Total Protein 7.4 (6.4-8.2) g/dL Albumin 3.6 (3.4-5.0) g/dL Globulin 3.8 (2.6-4.0) g/dL Albumin/Globulin Ratio 0.9 (0.9-1.6) TSH 3rd Generation 5.16 H (0.36-3.74) uIU/mL Prolactin 121.6 ng/mL Urine Color Urine Appearance Urine pH (5.0-8.0) Ur Specific [place] (1.001-1.035) Urine Protein (NEGATIVE) mg/dL Urine Glucose (UA) (NEGATIVE) mg/dL Urine Ketones (NEGATIVE) mg/dL Urine Occult Blood (NEGATIVE) Urine Nitrite (NEGATIVE) Urine Bilirubin (NEGATIVE) Urine Urobilinogen (<2.0) EU/dL Ur Leukocyte Esterase (NEGATIVE) 06/11/18 Range/Units 12:27 WBC (4.0-11.0) K/uL RBC (4.50-5.90) M/uL Hgb (13.0-17.0) g/dL Hct (38.0-50.0) % MCV (80.0-98.0) fL MCH (27.0-32.0) pg MCHC (31.0-37.0) g/dL RDW Std Deviation (28.0-62.0) fl RDW Coeff of Allen (11.0-15.0) % Plt Count (150-400) K/uL MPV (7.40-12.00) fL Neut % (Auto) (48.0-80.0) % Lymph % (Auto) (16.0-40.0) % [place] % (Auto) (0.0-15.0) % Eos % (Auto) (0.0-7.0) % Baso % (Auto) (0.0-1.5) % Neut # (Auto) (1.4-5.7) K/uL Lymph # (Auto) (0.6-2.4) K/uL [place] # (Auto) (0.0-0.8) K/uL Eos # (Auto) (0.0-0.7) K/uL Baso # (Auto) (0.0-0.1) K/uL Nucleated RBC % /100WBC Nucleated RBCs # K/uL INR Sodium (136-148) mmol/L Potassium (3.5-5.1) mmol/L Chloride (98-107) mmol/L Carbon Dioxide (21.0-32.0) mmol/L BUN (7.0-18.0) mg/dL Creatinine (0.8-1.3) mg/dL Est Cr Clr Drug Dosing Estimated GFR (MDRD) ml/min Glucose (74-106) mg/dL Calcium (8.5-10.1) mg/dL Total Bilirubin (0.2-1.0) mg/dL AST (15-37) IU/L ALT (14-63) IU/L Alkaline Phosphatase (46-116) U/L Troponin I (0.000-0.056) ng/mL Total Protein (6.4-8.2) g/dL Albumin (3.4-5.0) g/dL Globulin (2.6-4.0) g/dL Albumin/Globulin Ratio (0.9-1.6) TSH 3rd Generation (0.36-3.74) uIU/mL Prolactin ng/mL Urine Color YELLOW Urine Appearance CLEAR Urine pH 6.5 (5.0-8.0) Ur Specific [place] 1.020 (1.001-1.035) Urine Protein NEGATIVE (NEGATIVE) mg/dL Urine Glucose (UA) NEGATIVE (NEGATIVE) mg/dL Urine Ketones NEGATIVE (NEGATIVE) mg/dL Urine Occult Blood NEGATIVE (NEGATIVE) Urine Nitrite NEGATIVE (NEGATIVE) Urine Bilirubin NEGATIVE (NEGATIVE) Urine Urobilinogen 0.2 (<2.0) EU/dL Ur Leukocyte Esterase NEGATIVE (NEGATIVE) Result Diagrams: 06/11/18 04:57 06/11/18 04:57 Imaging Impressions Last 24 hrs: CT head showed atrophy and hypodensity in left frontal lobe, subcortical. UA negative for infection TSH mildly elevated Consult PN Assessment/Plan Procedures: Procedures CHEST X-RAY 2VW FRONTAL&LATL (04/25/16) CT HEAD/BRAIN W/O DYE (02/10/17) CT THORAX W/O DYE (11/26/16) EMERGENCY DEPT VISIT (04/25/16) EVALUATE PT USE OF INHALER (04/25/16) EXC TR-EXT B9+DANA >4.0 CM (12/24/16) LOWER EXTREMITY STUDY (01/17/15) TISSUE EXAM BY PATHOLOGIST (12/24/16) (1) Dementia SNOMED Code(s): 51413145 Code(s): F03.90 - UNSPECIFIED DEMENTIA WITHOUT BEHAVIORAL DISTURBANCE Priority: Medium Qualifiers: Dementia type: Alzheimer's disease Alzheimer's disease onset: other onset Dementia behavioral disturbance: without behavioral disturbance Qualified Code(s): G30.8 - Other Alzheimer's disease; F02.80 - Dementia in other diseases classified elsewhere without behavioral disturbance Assessment:: Impression: Episode of abnormal motor activity, likely seizure based on history although I dont have direct witnessed account. Elevated prolactin does not reliably differentiate seizure and syncope, but marked elevated does favor the former. He is at risk for recurrent seizures based on history of Down syndrome, dementia and abnormal head CT, so I recommend starting AED. I discussed merits and risks of Keppra with his sister, who is amenable. Recommendations Start Keppra 500 mg BID Observation, consider discontinue tomorrow if not further events. I requested EEG, but there is no tech available today. We may try as an outpaitent (2) Episode of abnormal behavior SNOMED Code(s): 43100141 Code(s): R46.89 - OTHER SYMPTOMS AND SIGNS INVOLVING APPEARANCE AND BEHAVIOR Problem List Initiated/Reviewed/Updated: Yes My Orders Last 24 Hours: My Active Orders 06/11/18 11:05 EEG Awake Drowsy [RC] ROUTINE Requesting Provider: Haroon Date Consult Requested: 06/11/18
[2018-06-11] MEDS: METRONIDAZOLE GEL TOP SCH (20:04)
[2018-06-11] MEDS ORDERED: traZODone 50 MG Tab PO SCH (21:00)
[2018-06-11] MEDS ORDERED: atorvaSTATin 20 MG Tab PO SCH (21:00)
[2018-06-12] MEDS: Sodium Chloride 0.9% 1,000 ML IV SCH (03:31)
[2018-06-12 07:54] VITALS: BP 110/72
[2018-06-12] MEDS ORDERED: Sertraline 25 MG Tab PO SCH (09:00)
[2018-06-12] MEDS ORDERED: Diltiazem 180 MG Cap.CD PO SCH (09:00)
--- NOTE | 2018-06-12 09:37 | PCM.DCSUM1 ---
Discharge Summary - Hospital Course HPI Initial Comments: Admitted secondary to seizure activity Diagnosis: Stroke: No - Discharge Data Discharge Date: 06/12/18 Discharge Disposition: DC/Tfer to [facility]04 Condition: Fair - Discharge Diagnosis/Problem(s) (1) Seizure SNOMED Code(s): 43292026 ICD Code: R56.9 - UNSPECIFIED CONVULSIONS Status: Acute Priority: High (2) Dementia SNOMED Code(s): 10164447 ICD Code: F03.90 - UNSPECIFIED DEMENTIA WITHOUT BEHAVIORAL DISTURBANCE Status: Chronic Priority: Medium Qualifiers: Dementia type: Alzheimer's disease Alzheimer's disease onset: other onset Dementia behavioral disturbance: without behavioral disturbance Qualified Code(s): G30.8 - Other Alzheimer's disease; F02.80 - Dementia in other diseases classified elsewhere without behavioral disturbance (3) Developmental disability Status: Chronic Priority: Medium (4) Mitral valve replaced SNOMED Code(s): 1414354971161, 4921029985049 ICD Code: Z95.2 - PRESENCE OF PROSTHETIC HEART VALVE Status: Chronic Priority: Medium (5) Chronic anticoagulation SNOMED Code(s): 222908820 ICD Code: Z79.01 - [facility] (CURRENT) USE OF ANTICOAGULANTS Status: Chronic Priority: Medium (6) Down's syndrome SNOMED Code(s): 59205939 ICD Code: Q90.9 - DOWN SYNDROME, UNSPECIFIED Status: Chronic Priority: Medium (7) CVA, old, dysarthria SNOMED Code(s): 989081246 ICD Code: I69.322 - DYSARTHRIA FOLLOWING CEREBRAL INFARCTION Status: Chronic Priority: Medium - Patient Summary/Data Consults: Consultations 06/11/18 06:22 Consult to Physician [CONS] Stat Hospital Course: The patient is a 53-year-old gentleman who has Down syndrome. 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 Patient has had a decline in his overall functioning status as well. CT scan obtained through the emergency department did show severe cerebral atrophy and an old infarct. Neurology has been consulted for the new onset seizures. I had a discussion with the neurologist that had indicated that the old CVA was likely foci of the patient' s seizure activities. Neurology has recommended that the patient be started on Keppra 500 mg by mouth twice a day. The patient once he is awake and out of sedation may require one-to-one setter. The patient had been evaluated by neurology and had been recommended to start on Keppra 500 mg by mouth twice a day. The patient did have indication of seizure activity as evidenced by elevation in his prolactin level at 121. After the patient had recovered from sedation for his CT scan he had returned to his baseline. The patient had been evaluated by his family and caregiver whose that he was doing better. Patient is able to tolerate diet. Is been recommended to continue with his diet. Patient is also to have activity as tolerated. Patient has been hemodynamically stable and he is discharged with the recommendations listed above. - Patient Instructions Diet: Heart Healthy Diet Activity: As Tolerated - Discharge Plan *PRESCRIPTION DRUG MONITORING PROGRAM REVIEWED*: No *COPY OF PRESCRIPTION DRUG MONITORING REPORT IN PATIENT YOLI: No Prescriptions/Med Rec: levETIRAcetam [Keppra] 500 mg PO BID #60 tablet Home Medications: Home Meds Potassium Chloride 10 meq PO DAILY 04/25/16 [History] Warfarin [Coumadin] 3 mg PO ASDIRECTED 04/25/16 [History] Warfarin [Coumadin] 4.5 mg PO ASDIRECTED 04/25/16 [History] atorvaSTATin [Lipitor] 20 mg PO BEDTIME 04/25/16 [History] Aspirin [[place] Aspirin EC] 81 mg PO DAILY 12/22/16 [History] Betamethasone Valerate [IJD: Valisone 0.1% Crm] 1 applic TOP ASDIRECTED [History] Diltiazem [Cardizem CD] 180 mg PO DAILY 12/22/16 [History] traZODone HCl [Trazodone HCl] 50 mg PO BEDTIME 12/22/16 [History] Cyanocobalamin (Vitamin B12) [Vitamin B12] 1,000 mcg PO DAILY 06/11/18 [History] Dimethicone/Oatmeal, Colloidal [Aveeno Daily Moist Lotion] 1 applic TOP ASDIRECTED 06/11/18 [History] Ketoconazole [Nizoral 2% Shampoo] 1 applic TOP ASDIRECTED 06/11/18 [History] Sertraline [Zoloft] 50 mg PO DAILY 06/11/18 [History] metroNIDAZOLE [Metronidazole] 1 applic TOP BID 06/11/18 [History] levETIRAcetam [Keppra] 500 mg PO BID #60 tablet 06/12/18 [Rx] Patient Handouts: Epilepsy, [id number], Levetiracetam tablets Referrals: Linda Kirkland MD [Physician] - (Please call on Thursday, June 14 and schedule a follow up appointment for the next availability.) Cuate Dowell MD [Ordering Only Provider] - (Please call on Thursday, June 14 and Schedule a follow up appointment in 5-7 days.) - Discharge Summary/Plan Comment DC Time >30 min.: Yes - General Info Date of Service: 06/12/18 Admission Dx/Problem (Free Text: Admission Diagnosis/Problem Admission Diagnosis/Problem Abnormal motor activity, seizure activity Functional Status: Reports: Pain Controlled - Review of Systems General: Reports: No Symptoms HEENT: Reports: No Symptoms Pulmonary: Reports: No Symptoms Cardiovascular: Reports: No Symptoms Gastrointestinal: Reports: No Symptoms Genitourinary: Reports: No Symptoms Musculoskeletal: Reports: No Symptoms Skin: Reports: No Symptoms Neurological: Reports: No Symptoms Psychiatric: Reports: No Symptoms Systems Review Comment: Patient's review of systems not reliable - Patient Data Vitals - Most Recent: Last Vital Signs Temp 36.4 C 06/12/18 07:53 Pulse 69 06/12/18 04:00 Resp 16 06/12/18 07:53 BP 110/72 06/12/18 07:53 Pulse Ox 94 L 06/12/18 04:00 Weight - Most Recent: 59.3 kg I&O - Last 24 hours: Intake & Output 06/11/18 06/12/18 06/12/18 22:59 06:59 14:59 Intake Total 2081 1000 Output Total 400 Balance 1681 1000 Lab Results - Last 24 hrs: Laboratory Results - last 24 hr 06/11/18 Range/Units 12:27 Urine Color YELLOW Urine Appearance CLEAR Urine pH 6.5 (5.0-8.0) Ur Specific [place] 1.020 (1.001-1.035) Urine Protein NEGATIVE (NEGATIVE) mg/dL Urine Glucose (UA) NEGATIVE (NEGATIVE) mg/dL Urine Ketones NEGATIVE (NEGATIVE) mg/dL Urine Occult Blood NEGATIVE (NEGATIVE) Urine Nitrite NEGATIVE (NEGATIVE) Urine Bilirubin NEGATIVE (NEGATIVE) Urine Urobilinogen 0.2 (<2.0) EU/dL Ur Leukocyte Esterase NEGATIVE (NEGATIVE) Med Orders - Current: Current Medications Atorvastatin Calcium (Lipitor) 20 mg PO BEDTIME [facility] Last Admin: 06/11/18 20:02 Dose: 20 mg Betamethasone Valerate (Valisone 0.1% Crm) 0 gm TOP ASDIRECTED [facility] Diltiazem HCl (Cardizem Cd) 180 mg PO DAILY [facility] Sodium Chloride (Normal Saline) 500 mls @ 999 mls/hr IV STAT [facility] Last Admin: 06/11/18 05:17 Dose: 999 mls/hr Sodium Chloride (Normal Saline) 500 mls @ 999 mls/hr IV .BOLUS [facility] Last Admin: 06/11/18 05:51 Dose: 999 mls/hr Sodium Chloride (Normal Saline) 1,000 mls @ 100 mls/hr IV ASDIRECTED [facility] Last Admin: 06/12/18 03:31 Dose: 100 mls/hr Levetiracetam (Keppra) 500 mg PO BID [facility] Last Admin: 06/11/18 20:03 Dose: 500 mg Ketoconazole [ (Nizoral 2% Shampoo]) 1 each TOP ASDIRECTED [facility] Metronidazole Gel 1 each TOP BID [facility] Last Admin: 06/11/18 20:04 Dose: Not Given Sertraline HCl (Zoloft) 50 mg PO DAILY [facility] Sodium Chloride (Saline Flush) 10 ml FLUSH ASDIRECTED PRN PRN Reason: Keep Vein Open Sodium Chloride (Saline Flush) 2.5 ml FLUSH ASDIRECTED PRN PRN Reason: Keep Vein Open Trazodone HCl (Trazodone) 50 mg PO BEDTIME [facility] Last Admin: 06/11/18 20:02 Dose: 50 mg Warfarin Sodium (Coumadin Ask) 0 each PO DAILY@1400 [facility] Discontinued Medications Sodium Chloride (Normal Saline) 1,000 mls @ 125 mls/hr IV ASDIRECTED [facility] Lorazepam (Ativan) 0.5 mg IVPUSH ONETIME ONE Stop: 06/11/18 05:02 Last Admin: 06/11/18 05:16 Dose: 0.5 mg Lorazepam (Ativan) 0.5 mg IVPUSH ONETIME ONE Stop: 06/11/18 05:27 Last Admin: 06/11/18 05:26 Dose: 0.5 mg Warfarin Sodium (Coumadin) 2.5 mg PO DAILY@1400 ONE Stop: 06/11/18 14:01 Last Admin: 06/11/18 14:31 Dose: Not Given Warfarin Sodium (Coumadin) 2 mg PO DAILY@1400 ONE Stop: 06/11/18 14:01 Last Admin: 06/11/18 14:31 Dose: Not Given Warfarin Sodium (Coumadin) 2.5 mg PO DAILY@1430 ONE Stop: 06/11/18 14:31 Last Admin: 06/11/18 15:12 Dose: 2.5 mg Warfarin Sodium (Coumadin) 2 mg PO DAILY@1430 ONE Stop: 06/11/18 14:31 Last Admin: 06/11/18 15:13 Dose: 2 mg - Exam Quality Assessment: Denies: Supplemental Oxygen General: Reports: Alert (Down syndrome, developmentally delayed), Cooperative, No Acute Distress HEENT: Reports: Pupils Equal, Pupils Reactive. Denies: Mucous Membr. Moist/ [place] (Dry, edentulous) Neck: Reports: Supple, Trachea Midline Lungs: Reports: Clear to Auscultation, Normal Respiratory Effort Cardiovascular: Reports: Regular Rate, Regular Rhythm, Murmurs GI/Abdominal Exam: Normal Bowel Sounds, Soft, No Distention (Male) Exam: Deferred Rectal (Males) Exam: Deferred Back Exam: Reports: Normal Inspection, Full Range of Motion Extremities: Normal Inspection, No Pedal Edema Skin: Reports: Warm, Dry, Intact Psy/Mental Status: Reports: Alert, Normal Affect
[2018-06-12] MEDS: levETIRAcetam 500 MG Tab PO SCH (10:02)
[2018-06-12] MEDS: METRONIDAZOLE GEL TOP SCH (10:07)
== END 2018-06-12 12:20 ==
LOC: MW.ED 04:52 → MW.MS 06:20
PROVIDERS: ADMIT Internal Medicine; ATTEND Internal Medicine
DX: R56.9 Unspecified convulsions (principal); G30.8 Other Alzheimer's disease; F02.80 Dementia in other diseases classified elsewhere, unspecified severity, without behavioral disturbance, psychotic disturbance, mood disturbance, and anxiety; Q90.9 Down syndrome, unspecified; I69.322 Dysarthria following cerebral infarction; G47.30 Sleep apnea, unspecified; E11.9 Type 2 diabetes mellitus without complications; I11.0 Hypertensive heart disease with heart failure; I50.9 Heart failure, unspecified; E78.00 Pure hypercholesterolemia, unspecified; F72 Severe intellectual disabilities; Z95.2 Presence of prosthetic heart valve; Z87.74 Personal history of (corrected) congenital malformations of heart and circulatory system; Z79.01 Long term (current) use of anticoagulants; Z79.82 Long term (current) use of aspirin; Z79.899 Other long term (current) drug therapy
CPT/HCPCS: 36415; 70450; 70450-26; 71045; 71045-26; 80053; 81003; 84146; 84443; 84484; 85025; 85610; 93005; 96361; 96374; 99284; 99285-25; A9270-GY; G0378; J2060; J7040

== ENCOUNTER 2018-07-09 14:15 | Emergency (ER) | payer MEDICARE, MEDICAID ==
[2018-07-09 14:31] VITALS: BP 91/47
--- NOTE | 2018-07-09 15:12 | EDM.PDOC ---
ED HPI GENERAL MEDICAL PROBLEM - General Chief Complaint: Genitourinary Problem Stated Complaint: BLADDER ISSUES Time Seen by Provider: 07/09/18 14:22 Source of Information: Reports: Patient, Other History Limitations: Reports: Other - History of Present Illness INITIAL COMMENTS - FREE TEXT/NARRATIVE: History of present illness: []Patient is a Down syndrome patient is brought in by a caregiver for increased frequency, urgency and trying to poke his bladder with a pen. This behavior usually indicates that he's having discomfort. retirement staff has not noted blood in his urine fevers or vomiting. Patient was admitted last month for seizure found to have an old stroke. He is currently on Coumadin for mitral valve replacement and has not had any issues with bleeding. She has had a good appetite today and has eaten his meals without difficulty. Review of systems: As per history of present illness and below otherwise all systems reviewed and negative. Past medical history: As per history of present illness and as reviewed below otherwise noncontributory. Surgical history: As per history of present illness and as reviewed below otherwise noncontributory. Social history: No reported history of drug or alcohol abuse. Family history: As per history of present illness and as reviewed below otherwise noncontributory. Physical exam: General: Well developed, well nourished in NAD HEENT: Atraumatic, normocephalic, pupils reactive, negative for conjunctival pallor or scleral icterus, mucous membranes moist, throat clear, neck supple, nontender, trachea midline. Lungs: Clear to auscultation, breath sounds equal bilaterally, chest nontender. Heart: S1S2, regular, negative for clicks, rubs, or JVD. Abdomen: NABS, Soft, nondistended, nontender. Negative for masses or hepatosplenomegaly. Negative for costovertebral tenderness. Pelvis: Stable nontender. Genitourinary: Deferred. Rectal: Deferred. Extremities: Atraumatic, Neurovascular unremarkable. Neuro: Awake, alert, Exam nonfocal. Skin:warm and dry Diagnostics: UA and urine culture Therapeutics: None ED Course: Stable Impression: Encounter for medical screening exam Prescriptions: None Plan: Follow-up with primary care as needed encourage fluids Definitive disposition and diagnosis as appropriate pending reevaluation and review of above. - Related Data Allergies Allergy/AdvReac Type Severity Reaction Status Date / Time No Known Allergies Allergy Verified 07/09/18 14:31 Home Meds: Home Meds Potassium Chloride 10 meq PO DAILY 04/25/16 [History] Warfarin [Coumadin] 3 mg PO ASDIRECTED 04/25/16 [History] Warfarin [Coumadin] 4.5 mg PO ASDIRECTED 04/25/16 [History] atorvaSTATin [Lipitor] 20 mg PO BEDTIME 04/25/16 [History] Aspirin [[place] Aspirin EC] 81 mg PO DAILY 12/22/16 [History] Betamethasone Valerate [IJD: Valisone 0.1% Crm] 1 applic TOP ASDIRECTED [History] Diltiazem [Cardizem CD] 180 mg PO DAILY 12/22/16 [History] traZODone HCl [Trazodone HCl] 50 mg PO BEDTIME 12/22/16 [History] Cyanocobalamin (Vitamin B12) [Vitamin B12] 1,000 mcg PO DAILY 06/11/18 [History] Dimethicone/Oatmeal, Colloidal [Aveeno Daily Moist Lotion] 1 applic TOP ASDIRECTED 06/11/18 [History] Ketoconazole [Nizoral 2% Shampoo] 1 applic TOP ASDIRECTED 06/11/18 [History] Sertraline [Zoloft] 50 mg PO DAILY 06/11/18 [History] metroNIDAZOLE [Metronidazole] 1 applic TOP BID 06/11/18 [History] levETIRAcetam [Keppra] 500 mg PO BID #60 tablet 06/12/18 [Rx] Past Medical History - Past Health History Medical/Surgical History: Denies Medical/Surgical History HEENT History: Reports: None Other HEENT History: Myopia Cardiovascular History: Reports: Heart Valve Replacement, High Cholesterol, Hypertension, Other (See Below) Other Cardiovascular History: hx congenital septal defect Respiratory History: Reports: Sleep Apnea Other Respiratory History: sleep apnea, (septoplasty and adenoidectomy for this) Musculoskeletal History: Reports: Other (See Below) Neurological History: Reports: Seizure Other Neuro History: Down's syndrome, moderate Psychiatric History: Reports: Other (See Below) Other Psychiatric History: down syndrome Endocrine/Metabolic History: Reports: Diabetes, Type II Hematologic History: Reports: None Dermatologic History: Reports: Other (See Below) Other Dermatologic History: rash to face - Past Surgical History HEENT Surgical History: Reports: Adenoidectomy Social & Family History - Family History Family Medical History: Noncontributory - Tobacco Use Smoking Status *Q: Never Smoker - Caffeine Use Caffeine Use: Reports: None Caffeine Use Comment: 1cup/day - Recreational Drug Use Recreational Drug Use: No - Living Situation & Occupation Living situation: Reports: Single, Other (retirement) Occupation: Disabled ED ROS GENERAL - Review of Systems Review Of Systems: ROS reveals no pertinent complaints other than HPI. ED EXAM, RENAL/ - Physical Exam Exam: See Below (See history of present illness) Course - Vital Signs Last Recorded V/S: Last Vital Signs Temp 97.9 F 07/09/18 14:29 Pulse 78 07/09/18 14:29 Resp 18 07/09/18 14:29 BP 91/47 L 07/09/18 14:29 Pulse Ox 98 07/09/18 14:29 - Orders/Labs/Meds Orders: Active Orders 24 hr Category Date Time Status Bladder Scan [RC] ASDIRECTED Care 07/09/18 14:20 Active Labs: Laboratory Tests 07/09/18 Range/Units 14:56 Urine Color YELLOW Urine Appearance CLEAR Urine pH 6.0 (5.0-8.0) Ur Specific [place] 1.020 (1.001-1.035) Urine Protein NEGATIVE (NEGATIVE) mg/dL Urine Glucose (UA) NEGATIVE (NEGATIVE) mg/dL Urine Ketones NEGATIVE (NEGATIVE) mg/dL Urine Occult Blood TRACE-INTACT H (NEGATIVE) Urine Nitrite NEGATIVE (NEGATIVE) Urine Bilirubin NEGATIVE (NEGATIVE) Urine Urobilinogen 0.2 (<2.0) EU/dL Ur Leukocyte Esterase NEGATIVE (NEGATIVE) Urine RBC 0-2 (0-2/HPF) Urine WBC 0-1 (0-5/HPF) Ur Epithelial Cells RARE (NONE-FEW) Urine Bacteria RARE (NEGATIVE) Departure - Departure Time of Disposition: 15:22 Disposition: Home, Self-Care 01 Condition: Good Clinical Impression: Encounter for medical screening examination - Discharge Information *PRESCRIPTION DRUG MONITORING PROGRAM REVIEWED*: No *COPY OF PRESCRIPTION DRUG MONITORING REPORT IN PATIENT YOLI: No Referrals: Cuate Dowell MD [Primary Care Provider] - Forms: ED Department Discharge Additional Instructions: The following information is given to patients seen in the emergency department who are being discharged to home. This information is to outline your options for follow-up care. We provide all patients seen in our emergency department with a follow-up referral. The need for follow-up, as well as the timing and circumstances, are variable depending upon the specifics of your emergency department visit. If you don't have a primary care physician on staff, we will provide you with a referral. We always advise you to contact your personal physician following an emergency department visit to inform them of the circumstance of the visit and for follow-up with them and/or the need for any referrals to a consulting specialist. The emergency department will also refer you to a specialist when appropriate. This referral assures that you have the opportunity for follow-up care with a specialist. All of these measure are taken in an effort to provide you with optimal care, which includes your follow-up. Under all circumstances we always encourage you to contact your private physician who remains a resource for coordinating your care. When calling for follow-up care, please make the office aware that this follow-up is from your recent emergency room visit. If for any reason you are refused follow-up, please contact the [facility] Emergency Department at and asked to speak to the emergency department charge nurse. [facility] [address] [place] [id number]
== END 2018-07-09 15:29 | disposition home or self-care (01) ==
LOC: MW.ED 14:15
DX: Z13.9 Encounter for screening, unspecified (principal); E11.9 Type 2 diabetes mellitus without complications; Z79.01 Long term (current) use of anticoagulants; Z79.899 Other long term (current) drug therapy
CPT/HCPCS: 51798; 81001; 99283

== ENCOUNTER 2019-01-13 12:14 | Emergency (ER) | payer MEDICAID, MEDICARE ==
--- NOTE | 2019-01-13 12:36 | EDM.PDOC ---
ED HPI GENERAL MEDICAL PROBLEM - General Stated Complaint: NOT ACTING NORMAL Time Seen by Provider: 01/13/19 12:18 Source of Information: Reports: EMS, Senior Living Records History Limitations: Reports: Altered Mental Status - History of Present Illness INITIAL COMMENTS - FREE TEXT/NARRATIVE: HISTORY AND PHYSICAL: History of present illness: Patient is a 53-year-old male who presents to the ED today from [facility] via EMS for concern of possible seizure-like activity for 30 minutes at [facility]. According the [facility], patient has not had a seizure since his stay at [facility] but started acting unusual 30 minutes prior to arrival to the ED. EMS states they did give 5 of Versed in route and have not noticed any change in patient's status. Patient presents to the ED today with acute respiratory distress, tachypneic, O2 on 5L nonrebreather 67%. Patient is a DNR code status. Family at bedside. Patient has a history of Down syndrome, seizure disorder, dementia, and congestive heart failure. Review of systems: As per history of present illness and below otherwise all systems reviewed and negative. Past medical history: As per history of present illness and as reviewed below otherwise noncontributory. Surgical history: As per history of present illness and as reviewed below otherwise noncontributory. Social history: See social history for further information Family history: As per history of present illness and as reviewed below otherwise noncontributory. Physical exam: General: Patient is unresponsive, acute respiratory distress. Patient laying on exam table. HEENT: Atraumatic, normocephalic, pupils equal and reactive bilaterally, negative for conjunctival pallor or scleral icterus, mucous membranes dry, throat clear, neck supple, trachea midline. Lungs: Tachypneic. Diminished to auscultation but clear, breath sounds equal bilaterally. Heart: S1S2, regular rate and rhythm without overt murmur Abdomen: Soft, nondistended. Negative for masses or hepatosplenomegaly. Pelvis: Stable nontender. Genitourinary: Deferred. Rectal: Deferred. Skin: Intact, warm, dry. No lesions or rashes noted. Extremities: Atraumatic, negative for cords or calf pain. Neurovascular unremarkable. Neuro: Unresponsive Notes: Dr. Patiño directly involved in patient care. Family at bedside has decided on comfort care. Pastoral care at bedside. Hospice was involved in patient care. Comfort cares decided by family at bedside Time of 14:05. Dr. Patiño present for announcement. home notified Diagnostics: Family declines all diagnostics Therapeutics: 15L non-rebreather Impression: Acute respiratory failure Patient Plan: Patient Definitive disposition and diagnosis as appropriate pending reevaluation and review of above. - Related Data Allergies Allergy/AdvReac Type Severity Reaction Status Date / Time No Known Allergies Allergy Verified 01/13/19 12:31 Home Meds: Home Meds Potassium Chloride 10 meq PO DAILY 04/25/16 [History] atorvaSTATin [Lipitor] 20 mg PO BEDTIME 04/25/16 [History] Aspirin [[place] Aspirin EC] 81 mg PO DAILY 12/22/16 [History] Betamethasone Valerate [IJD: Valisone 0.1% Crm] 1 applic TOP MOWEFR 12/22/16 [ History] Diltiazem [Cardizem CD] 180 mg PO DAILY 12/22/16 [History] traZODone HCl [Trazodone HCl] 25 mg PO BEDTIME 12/22/16 [History] Cyanocobalamin (Vitamin B12) [Vitamin B12] 1,000 mcg PO DAILY 06/11/18 [History] Dimethicone/Oatmeal, Colloidal [Aveeno Daily Moist Lotion] 1 applic TOP Q12H PRN 06/11/18 [History] Ketoconazole [Nizoral 2% Shampoo] 1 applic TOP .TWICE WEEKLY 06/11/18 [History] metroNIDAZOLE [Metronidazole] 1 applic TOP BID 06/11/18 [History] Acetaminophen [Tylenol] 650 mg PO BID MDD 3000 mg 01/13/19 [History] Acetaminophen [Tylenol] 650 mg PO Q4H PRN MDD 3000 mg 01/13/19 [History] Bisacodyl 10 mg RC Q24H PRN 01/13/19 [History] Carbamide Peroxide [Debrox] 3 drop EARBOTH Q12H PRN 01/13/19 [History] Sertraline [Zoloft] 50 mg PO DAILY 01/13/19 [History] levETIRAcetam [Keppra] 500 mg PO BID 01/13/19 [History] Past Medical History - Past Health History Medical/Surgical History: Denies Medical/Surgical History HEENT History: Reports: None Other HEENT History: Myopia Cardiovascular History: Reports: Heart Valve Replacement, High Cholesterol, Hypertension, Other (See Below) Other Cardiovascular History: hx congenital septal defect Respiratory History: Reports: Sleep Apnea Other Respiratory History: sleep apnea, (septoplasty and adenoidectomy for this) Musculoskeletal History: Reports: Other (See Below) Neurological History: Reports: Seizure Other Neuro History: Down's syndrome, moderate Psychiatric History: Reports: Other (See Below) Other Psychiatric History: down syndrome Endocrine/Metabolic History: Reports: Diabetes, Type II Hematologic History: Reports: None Dermatologic History: Reports: Other (See Below) Other Dermatologic History: rash to face - Past Surgical History HEENT Surgical History: Reports: Adenoidectomy Social & Family History - Family History Family Medical History: Noncontributory - Caffeine Use Caffeine Use: Reports: None Caffeine Use Comment: 1cup/day - Living Situation & Occupation 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 ED EXAM, GENERAL - Physical Exam Exam: See Below (see Dictation) Course - Vital Signs Last Recorded V/S: Last Vital Signs Temp 97.3 F 01/13/19 12:31 Pulse 121 H 01/13/19 12:31 Resp 28 H 01/13/19 12:31 BP 99/76 01/13/19 12:31 Pulse Ox 75 L 01/13/19 12:31 Departure - Departure Time of Disposition: 14:30 Disposition: 20 Clinical Impression: Patient Acute respiratory failure Qualifiers: Respiratory failure complication: hypoxia and hypercapnia Qualified Code(s): J96.01 - Acute respiratory failure with hypoxia; J96.02 - Acute respiratory failure with hypercapnia - Discharge Information Referrals: Provider,Unknown [Primary Care Provider] -
[2019-01-13] MEDS ORDERED: Acetaminophen 120 MG Supp RECTAL ONE (13:43)
[2019-01-13 16:14] VITALS: BP 99/45; PULSE 114
== END 2019-01-13 18:45 | disposition expired ==
LOC: MW.ED 12:14
DX: J96.01 Acute respiratory failure with hypoxia (principal); J96.02 Acute respiratory failure with hypercapnia; E78.00 Pure hypercholesterolemia, unspecified; I10 Essential (primary) hypertension; E11.9 Type 2 diabetes mellitus without complications; Z79.82 Long term (current) use of aspirin; Z79.899 Other long term (current) drug therapy
CPT/HCPCS: 99284